=== PATIENT | female | born 1995 | race Caucasian/White ===

== ENCOUNTER 2020-09-24 23:04 | Emergency (ER) | payer SELFPAY ==
[2020-09-25] MEDS ORDERED: SMZ./TMP. 800/160 MG TABLET ONE (00:56)
[2020-09-25] MEDS ORDERED: CLINDAMYCIN 900MG/D5W 900 MG/50 ML IVPB IV ONE (00:57)
[2020-09-25] MEDS ORDERED: ONDANSETRON 4 MG/2 ML VIAL ONE (00:57)
[2020-09-25] MEDS ORDERED: MORPHINE 4 MG/ML SYR ONE (00:57)
--- NOTE | 2020-09-25 01:01 | EDPHYS ---
Physician Documentation [facility] Name: Milka Munroe Age: 24 yrs Sex: Female : 1995 Arrival Date: 09/24/2020 Time: 23:08 Bed 6 Private MD: ERASMO Physician Thomas Cisneros HPI: 09/25 00:56 This 24 yrs old Female presents to ER via Ambulatory with complaints of Eye jmm Problem. 00:56 the patient presents with a swollen area of the forehead and right eye. Onset: The jmm symptoms/episode began/occurred gradually, 1 day(s) ago. Possible cause(s): unknown. Associated signs and symptoms: Pertinent positives: erythema, swelling, Pertinent negatives: foreign body sensation. Modifying factors: the symptoms are alleviated by nothing, the symptoms are aggravated by nothing. The patient has not experienced similar symptoms in the past. 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 - Social history:: Smoking status: Patient reports the use of cigarette tobacco products, smokes one-half pack cigarettes per day, Patient uses alcohol, on a daily basis. street drugs, cocaine, Methamphetamine (Meth). ROS: 09/25 00:56 Constitutional: Negative for fever, chills, and weight loss, Cardiovascular: Negative jmm for chest pain, palpitations, and edema, Respiratory: Negative for shortness of breath, cough, wheezing, and pleuritic chest pain. Skin: Positive for erythema. All other systems are negative. Exam: 00:56 Constitutional: This is a well developed, well nourished patient who is awake, alert, jmm and in no acute distress. Eyes: EOMI, no conjunctival erythema appreciated ENT: Moist Mucus Membranes Neck: Trachea midline, Supple Chest/axilla: Normal chest wall appearance and motion. 00:56 Respiratory: Normal respirations, no respiratory distress appreciated Abdomen/GI: Non distended, soft Back: Normal ROM 00:56 Head/face: erythema noted to the right side of the eyebrow along with swelling. 00:56 Skin: erythema noted to the right side of the forehead. 00:56 Neuro: Orientation: is normal, Mentation: is normal, Memory: is normal. 00:56 Psych: Behavior/mood is pleasant, cooperative. Vital Signs: 09/24 23:25 BP 145 / 106; Pulse 102; Resp 16; Temp 98.4; Pulse Ox 100% ; Weight 58.97 kg; Height 5 rr5 ft. 4 in. (162.56 cm); Pain 10/10; 09/25 01:00 BP 141 / 100; Pulse 101; Resp 16; Pulse Ox 100% on R/A; jb4 02:00 BP 149 / 105; Pulse 82; Resp 16; Pulse Ox 100% on R/A; jb4 09/24 23:25 Body Mass Index 22.31 (58.97 kg, 162.56 cm) rr5 MDM: 00:25 Patient medically screened. [facility] 00:58 Data reviewed: vital signs, nurses notes. Counseling: I had a detailed discussion with [facility] the patient and/or guardian regarding: the historical points, exam findings, and any diagnostic results supporting the discharge/admit diagnosis, the need for outpatient follow up, to return to the emergency department if symptoms worsen or persist or if there are any questions or concerns that arise at home. ED course: Patient is alert and non toxic in appearance in the ED. EOM intact. I do not suspect orbital cellulitis. Will treat with oral abx and otherwise given strict return precautions. patient understood and agrees with the plan of care. . 09/25 01:53 Order name: Urine Dipstick-Ancillary; Complete Time: 13:56 [facility] 09/25 02:02 Order name: Urine Culture [facility] 09/25 02:04 Order name: Urine --Ancillary (enter results) 2 09/25 00:26 Order name: Saline Lock; Complete Time: 01:05 [facility] 09/25 00:26 Order name: Urine Dipstick-Ancillary (obtain specimen); Complete Time: 02:02 [facility] 09/25 00:26 Order name: Urine Test (obtain specimen); Complete Time: 02:02 [facility] Administered Medications: 00:50 Drug: Bactrim (trimethoprim-sulfamethoxazole) (160 mg-800 mg (DS) 1 tablet Route: PO; jb4 02:13 Follow up: Response: No adverse reaction jb4 00:53 Drug: Zofran (Ondansetron) 4 mg Route: IVP; Site: right antecubital; jb4 01:25 Follow up: Response: No adverse reaction; Marked relief of symptoms jb4 00:55 Drug: morphine 4 mg Route: IVP; Site: right antecubital; jb4 01:25 Follow up: Response: No adverse reaction; Marked relief of symptoms; Pain is decreased jb4 01:00 Drug: Clindamycin 900 mg Route: IVPB; Infused Over: 30 mins; Site: right antecubital; jb4 01:30 Follow up: Response: No adverse reaction; IV Status: Completed infusion jb4 02:11 Drug: Rocephin (cefTRIAXone) 1 grams Route: IV; Rate: calculated rate; Site: right 4 antecubital; 02:12 Follow up: Response: No adverse reaction; IV Status: Completed infusion; IV Intake: [id number] Disposition: 16:53 Co-signature as Attending Physician, Thomas Cisneros MD I agree with the assessment and sarika plan of care. Disposition: 09/25/20 01:00 Discharged to Home. Impression: Right Preseptal Cellulitis. - Condition is Stable. - Discharge Instructions: Preseptal Cellulitis, Adult. - Prescriptions for Clindamycin HCl 300 mg Oral Capsule - take 1 capsule by ORAL route every 6 hours for 10 days; 40 capsule. Bactrim DS 800- 160 mg Oral Tablet - take 1 tablet by ORAL route every 12 hours for 10 days; 20 tablet. Tylenol- Codeine #3 300-30 mg Oral Tablet - take 1 tablet by ORAL route every 4-6 hours As needed; 20 tablet. - Medication Reconciliation Form, Thank You Letter, Antibiotic Education, Prescription Opioid Use, Work release form form. - Follow up: Private Physician; When: 2 - 3 days; Reason: Recheck today's complaints, Continuance of care, Re-evaluation by your physician. Signatures: Dispatcher [employer] Thomas Luong MD MD cha Mickail, Joel, PA PA jmm Bryson, James RN RN jb4 Karlos Kolb RN RN rr5 Corrections: (The following items were deleted from the chart) 02:24 01:00 09/25/2020 01:00 Discharged to Home. Impression: Right Preseptal Cellulitis. jb4 Condition is Stable. Forms are Medication Reconciliation Form, Thank You Letter, Antibiotic Education, Prescription Opioid Use. Follow up: Private Physician; When: 2 - 3 days; Reason: Recheck today's complaints, Continuance of care, Re-evaluation by your physician. ileana
--- NOTE | 2020-09-25 01:01 | ER ---
Nurse's Notes [facility] Name: Milka Munroe Age: 24 yrs Sex: Female : 1995 Arrival Date: 09/24/2020 Time: 23:08 Bed 6 Private MD: Diagnosis: Right Preseptal Cellulitis Presentation: 09/24 23:25 Chief complaint: Patient states: I started to have severe headache yesterday then today rr5 when i woke up I feel a pressure on my right eye and it is swollen now. denies any trauma. Coronavirus screen: Client denies travel out of the [place] in the last 14 days. At this time, the client does not indicate any symptoms associated with coronavirus-19. Ebola Screen: Patient negative for fever greater than or equal to 101.5 degrees Fahrenheit, and additional compatible Ebola Virus Disease symptoms Patient denies exposure to infectious person. Patient denies travel to an Ebola-affected area in the 21 days before illness onset. Initial Sepsis Screen: Does the patient meet any 2 criteria? HR > 90 bpm. Does the patient have a suspected source of infection? Yes: Skin breakdown/wound. Risk Assessment: Do you want to hurt yourself or someone else? Patient reports no desire to harm self or others. Onset of symptoms was September 24, 2020. 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 - Social history:: Smoking status: Patient reports the use of cigarette tobacco products, smokes one-half pack cigarettes per day, Patient uses alcohol, on a daily basis. street drugs, cocaine, Methamphetamine (Meth). Screenin:57 Abuse screen: Denies threats or abuse. Nutritional screening: No deficits noted. jb4 Tuberculosis screening: No symptoms or risk factors identified. Fall Risk None identified. Assessment: 23:57 General: Appears in no apparent distress. comfortable, Behavior is calm, cooperative, jb4 appropriate for age. Pain: Complains of pain in right eye Pain radiates to right temporal area and right side of forehead Pain currently is 10 out of 10 on a pain scale. Neuro: Level of Consciousness is awake, alert, obeys commands, Oriented to person, place, time, situation. Cardiovascular: Patient's skin is warm and dry. Respiratory: Airway is patent Respiratory effort is even, unlabored, Respiratory pattern is regular, symmetrical. GI: No signs and/or symptoms were reported involving the gastrointestinal system. : No signs and/or symptoms were reported regarding the genitourinary system. EENT: No signs and/or symptoms were reported regarding the EENT system. Derm: Skin is intact, Skin is pink, warm \T\ dry. Musculoskeletal: Circulation, motion, and sensation intact. Range of motion: intact in all extremities. 09/25 01:06 Reassessment: Patient appears in no apparent distress at this time. Patient and/or jb4 family updated on plan of care and expected duration. Pain level reassessed. Patient is alert, oriented x 3, equal unlabored respirations, skin warm/dry/pink. D/c pending completion of IV antibiotics. 02:22 Reassessment: Patient appears in no apparent distress at this time. Patient and/or jb4 family updated on plan of care and expected duration. Pain level reassessed. Patient is alert, oriented x 3, equal unlabored respirations, skin warm/dry/pink. Vital Signs: 09/24 23:25 BP 145 / 106; Pulse 102; Resp 16; Temp 98.4; Pulse Ox 100% ; Weight 58.97 kg; Height 5 rr5 ft. 4 in. (162.56 cm); Pain 10/10; 09/25 01:00 BP 141 / 100; Pulse 101; Resp 16; Pulse Ox 100% on R/A; jb4 02:00 BP 149 / 105; Pulse 82; Resp 16; Pulse Ox 100% on R/A; jb4 09/24 23:25 Body Mass Index 22.31 (58.97 kg, 162.56 cm) rr5 ED Course: 09/24 23:08 Patient arrived in ED. es 23:28 Triage completed. rr5 23:29 Arm band placed on right wrist. rr5 23:57 Patient has correct armband on for positive identification. Bed in low position. Call jb4 light in reach. Side rails up X 1. Pulse ox on. NIBP on. 09/25 00:02 Alex Calvert, AMY is Primary Nurse. jb4 00:19 Jonah Miranda PA is PHCP. tyron 00:19 Thomas Cisneros MD is Attending Physician. [facility] 02:23 No provider procedures requiring assistance completed. IV discontinued, intact, jb4 bleeding controlled, No redness/swelling at site. Pressure dressing applied. Administered Medications: 00:50 Drug: Bactrim (trimethoprim-sulfamethoxazole) (160 mg-800 mg (DS) 1 tablet Route: PO; jb4 02:13 Follow up: Response: No adverse reaction jb4 00:53 Drug: Zofran (Ondansetron) 4 mg Route: IVP; Site: right antecubital; jb4 01:25 Follow up: Response: No adverse reaction; Marked relief of symptoms jb4 00:55 Drug: morphine 4 mg Route: IVP; Site: right antecubital; jb4 01:25 Follow up: Response: No adverse reaction; Marked relief of symptoms; Pain is decreased jb4 01:00 Drug: Clindamycin 900 mg Route: IVPB; Infused Over: 30 mins; Site: right antecubital; jb4 01:30 Follow up: Response: No adverse reaction; IV Status: Completed infusion jb4 02:11 Drug: Rocephin (cefTRIAXone) 1 grams Route: IV; Rate: calculated rate; Site: right [facility] antecubital; 02:12 Follow up: Response: No adverse reaction; IV Status: Completed infusion; IV Intake: [id number] Intake: 02:12 IV: 10ml; Total: 10ml. jb Outcome: 01:00 Discharge ordered by . [facility] 02:23 Discharged to home ambulatory, with friend. jb4 02:23 Condition: stable 02:23 Discharge instructions given to patient, Instructed on discharge instructions, follow up and referral plans. medication usage, Demonstrated understanding of instructions, follow-up care, medications, Prescriptions given X 3. 02:24 Patient left the ED. jb Addendum: 09/28/2020 07:46 Addendum: Culture Results: Positive urine culture. No further action required. Bacteria h b sensitive to prescribed antibiotic. Signatures: Jonah Miranda PA PA jmm Salyer, Edna es Baxter, Heather, RN RN Alex Calvert, RN RN jb4 Karlos Kolb RN RN rr5 Corrections: (The following items were deleted from the chart) 09/25 01:03 00:53 Clindamycin 900 mg IVPB in right antecubital over 30 mins [place] jb4
[2020-09-25 01:52] LABS: Urine Blood 3+ (Negative); Urine Glucose Negative (Negative); Urine Protein 1+ (Negative); Urine Specific Gravity >=1.030 (1.005-1.030)
[2020-09-25] MEDS ORDERED: CEFTRIAXONE/SWI 1gm 1 GM/10 ML SYR ONE (02:23)
[2020-09-25 02:30] VITALS: TEMP 98.4; O2SAT 100
[2020-09-25 02:33] VITALS: BP 149/105
[2020-09-25 03:56] LABS: Urine Specific Gravity/Preg >1.030 (1.005-1.030)
== END 2020-09-25 02:24 | disposition home or self-care (01) ==
LOC: ER 23:04
DX: L03.213 Periorbital cellulitis (principal); F17.210 Nicotine dependence, cigarettes, uncomplicated
CPT/HCPCS: 81003; 81025; 87077; 87086; 87088; 87186; 96365; 96375; 99283; J0696; J2405

== ENCOUNTER 2022-06-26 20:34 | Emergency (ER) | payer SELFPAY ==
--- OUTSIDE RECORDS SUMMARY | 2022-06-26 20:40 | XMS REPORT | Continuity of Care Document ---
:1995 Author Organization [facility] t Address [address] [place] [address] Care Team Providers Name Role Phone PCP, PATIENT DOES NOT HAVE A Primary Care Physician Unavaila Jerrod Rutherford Attending Clinician Unavailable JIM HUERTA Attending Clinician Unavailable Jim Huerta MD Attending Clinician Johana Barakat DO Attending Clinician Doctor Unassigned, [place] Attending Clinician Unavailable Kerry Renee Attending Clinician Provider, [facility] Attending Clinician Unavailable Hellen Tran Attending Clinician Physician, No Primary or Family Admitting Clinician UnavailJIM Clemons Admitting Clinician Unavailable Payers Payer Name Policy Type Policy Number Effective Date Expiration Date [facility] [id number] 2018 CHOICE MEDICAID 00:00:00 Problems Condition Condition Condition Status Onset Resolution Last Treating Co mments Source Name Details Category Date Date Treatment Clinician Date Presence Presence Disease Active 2017-05 Overview: Un keith of of 2-05 Formattin ity of intrauteri intrauteri 00:00: g of this [place] ne ne 00 note Medical contracept contracept might be Branch tete device tete device different from the original. 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 Papanicola Papanicola ou smear ou smear 018 pap of cervix of cervix neg History of History of Disease Active U nivers depression depression 3-09 it y of 00:00: [place] 00 [facility] Allergies, Adverse Reactions, Alerts Allergy Allergy Status Severity Reaction(s) Onset Inactive Treating Comm ents Source Name Type Date Date Clinician No Known DA Active U [facility] Allergie 2-20 Clear s 00:00: Frausto 00 [facility] NO KNOWN Drug Active Univers ALLERGIE Class ity of S [facility] Social History Social Habit Start Date Stop Date Quantity Comments Source History of tobacco Cigarette Smoker University of use [facility] Exposure to Not sure University of SARS-CoV-2 (event) [facility] Alcohol intake 2021-06-02 2021-06-02 Current University of 00:00:00 00:00:00 non-drinker of [facility] [place] [facility] alcohol Branch (finding) Cigarettes smoked 2017-12-03 2017-12-03 Univers ity of current (pack per 00:00:00 00:00:00 [place] ) - Reported Branch Cigarette 2017-12-03 2017-12-03 University of pack-years 00:00:00 00:00:00 [facility] Tobacco use and 2017-12-03 2017-12-03 Never used Universit y of exposure 00:00:00 00:00:00 [facility] Sex Ass[birth year] At [birth year] Universit y of 00:00:00 00:00:00 [facility] Smoking Status Start Date Stop Date Source Current every day smoker 2017-12-03 00:00:00 Uni versity [facility] Medications Ordered Filled Start Stop Current Ordering Indication Dosage Frequency Signature Comments Components Source Medication Medication Date Date Medication? Clinician (SIG) Name Name metoclopram No 10mg 10 mg, Uni vers omar HCl 06-02 Slow IV ity of (REGLAN) 20:45: 21:22 Push, [place] injection 00 :00 ONCE, 1 Medical 10 mg dose, On Branch 06/02/21 at 1445, KATHERINE NaCl 0.9% No 1000mL at 999 Uni vers (NS) bolus 06-02 mL/hr, ity of infusion 20:45: 20:20 1,000 mL, Domenico as 1,000 mL 00 :00 IV Medical Infusion, Branch ONCE, 1 dose, On Wed06/02/21 at 1445, STAT ibuprofen No 400mg 400 mg, Uni vers (IBU) 06-02 Oral, ity of tablet 400 20:30: 19:56 ONCE, 1 [place] as mg 00 :00 dose, On Medical [facility] Branch 06/02/21 at 1430, KATHERINE acetaminoph 2021- No 650mg 650 mg, U nivers en 06-02 Oral, ity of (TYLENOL) 20:30: 19:56 ONCE, 1 [place] tablet 650 00 :00 dose, On Medic al mg [facility] Branch 06/02/21 at 1430, KATHERINE ketorolac 2020- No 15mg 15 mg, Unive rs (TORADOL) 09-27 Slow IV ity of injection 17:00: 16:59 Push, Q6H, [place] 15 mg 00 :00 4 doses, Medical First dose Branch on 09/27/20 at 1200, Last dose on 09/28/20 at 0600, Routine
outreach team member approving Restricted medication : JOHANA BARAKAT clindamycin 2020- No 600mg 600 mg, IV Univers (CLEOCIN) 09-27 Piggyback, ity of injection 15:15: 14:08 ONCE, 1 [place] 600 mg 00 :00 dose, Fri Medical 09/27/20 at Branch 1015, KATHERINE
Re ason for Anti-Infec tive: Empiric Therapy for Suspected Infection< br>Empiric Therapy Site: HEENT
D uration of therapy: 72 hours
R estricted use approved by: ADC PROVIDER dexamethaso 2020- No 10mg 10 mg, IV Univers ne 09-27 Push, ity of (DECADRON 15:15: 14:08 ONCE, 1 [place] PHOSPHATE) 00 :00 dose, Fri Medi janneth injection 09/27/20 at Bran ch 10 mg 1015, STAT methylPREDN Yes [id number] Take by [facility] 09-27 9109 mouth ity of (MEDROL, 00:00: SEE-INSTRU D[place] as SHERMAN,) 4 mg 00 CTIONS. Medica l tablets follow Branch package directions methylPREDN Yes [id number] Take by [facility] 09-27 9109 mouth ity of (MEDROL, 00:00: SEE-INSTRU Domenico as SHERMAN,) 4 mg 00 CTIONS. Medica l tablets follow Branch package directions No known No [facility] No known No [facility] No known No Univers [facility] No known No Univers [facility] No known No Univers [facility] No known No Univers [facility] Immunizations Ordered Filled Immunization Date Status Comments [facility] e Immunization Name Name Varicella 2017-10-23 Completed [place] of (varivax)(chicken 00:00:00 [place] M edical pox) Branch Varicella 2017-10-23 Completed [place] of (varivax)(chicken 00:00:00 [place] M edical pox) Branch Varicella 2017-10-23 Completed University of (varivax)(chicken 00:00:00 [place] M edical pox) Branch Varicella 2017-10-23 Completed [place] of (varivax)(chicken 00:00:00 [place] M edical pox) Branch Varicella 2017-10-23 Completed University of (varivax)(chicken 00:00:00 [place] edical pox) Branch Varicella 2017-10-23 Completed University of (varivax)(chicken 00:00:00 [place] M edical pox) Branch Varicella 2017-10-23 Completed University of (varivax)(chicken 00:00:00 [place] M edical pox) Branch Varicella 2017-10-23 Completed University of (varivax)(chicken 00:00:00 [place] edical pox) Branch TDAP 2017-09-01 Completed University of 00:00:00 [facility] Tdap 2017-09-01 Completed University of 00:00:00 [facility] Tdap 2017-09-01 Completed University of 00:00:00 [facility] Tdap 2017-09-01 Completed University of 00:00:00 [facility] Tdap 2017-09-01 Completed University of 00:00:00 [facility] Tdap 2017-09-01 Completed University of 00:00:00 [facility] TDAP 2017-09-01 Completed University of 00:00:00 [facility] TDAP 2017-09-01 Completed University of 00:00:00 [facility] TDAP 2015-11-21 Completed University of 00:00:00 [facility] Tdap 2015-11-21 Completed University of 00:00:00 [facility] Tdap 2015-11-21 Completed University of 00:00:00 [facility] Tdap 2015-11-21 Completed University of 00:00:00 [facility] Tdap 2015-11-21 Completed University of 00:00:00 [facility] Tdap 2015-11-21 Completed University of 00:00:00 [facility] TDAP 2015-11-21 Completed University of 00:00:00 [facility] TDAP 2015-11-21 Completed University of 00:00:00 [facility] Vital Signs Vital Name Observation Time Observation Value Comments Source Systolic blood 2021-06-02 21:35:21 130 mm[Hg] Univer sity of pressure [facility] Diastolic blood 2021-06-02 21:35:21 98 mm[Hg] Unive rsity of pressure [facility] Heart rate 2021-06-02 21:35:21 109 /min [facility]i [facility] Respiratory rate 2021-06-02 21:35:21 18 /min Univ ers[facility] [place] [facility] Oxygen saturation in 2021-06-02 21:35:21 95 /min University of Arterial blood by [place] [facility] janneth Pulse oximetry Branch Body temperature 2021-06-02 17:58:00 36.67 Nancy Univ [facility] [place] [facility] Body height 2021-06-02 17:58:00 162.6 cm [facility] [place] [facility] Body weight 2021-06-02 17:58:00 56.7 kg [facility] [place] [facility] BMI 2021-06-02 17:58:00 21.46 kg/m2 [facility] [place] [facility] Systolic blood 2020-09-27 15:00:00 137 mm[Hg] Univer sity of pressure [place] [facility] Diastolic blood 2020-09-27 15:00:00 97 mm[Hg] Unive rsity of pressure [place] [facility] Heart rate 2020-09-27 15:00:00 105 /min [facility] [place] [facility] Respiratory rate 2020-09-27 15:00:00 18 /min Univ ers[facility] [place] [facility] Oxygen saturation in 2020-09-27 15:00:00 96 /min University of Arterial blood by [facility] janneth Pulse oximetry Branch Body temperature 2020-09-27 13:50:00 36.67 Nancy Univ ers[facility] [place] [facility] Body weight 2020-09-27 13:50:00 54.432 kg [facility]i [facility] [place] [facility] BMI 2020-09-27 13:50:00 21.26 kg/m2 [facility] [place] [facility] Systolic blood 2018-12-23 15:21:00 149 mm[Hg] Univer sity of pressure [place] [facility] Diastolic blood 2018-12-23 15:21:00 104 mm[Hg] Unive rsity of pressure [place] [facility] Heart rate 2018-12-23 15:14:00 81 /min [facility] [place] [facility] Body temperature 2018-12-23 15:14:00 36.72 Nancy Univ [facility] [place] [facility] Respiratory rate 2018-12-23 15:14:00 20 /min Univ [facility] [place] [facility] Body height 2018-12-23 15:14:00 160 cm [facility] [place] [facility] Body weight 2018-12-23 15:14:00 55.157 kg [facility] [place] [facility] BMI 2018-12-23 15:14:00 21.54 kg/m2 [facility] Oxygen saturation in 2018-12-23 15:14:00 99 /min University [facility] blood by [facility] Pulse oximetry Branch Procedures Procedure Date / Time Performed Performing Clinician [facility] e POCT TEST 2021-06-02 21:16:[address] [facility] D-DIMER 2021-06-02 20:23:00 Jim Huerta [facility] XR CHEST 1 VW 2021-06-02 18:52:11 Jim Huerta [facility] COVID-19 (ID NOW RAPID 2021-06-02 18:14:00 Jim Huerta [facility] TESTING) Medical [facility] COMP. METABOLIC PANEL 2020-09-27 14:14:00 Johana Barakat [facility] ([id number]) [facility] CBC WITH DIFF 2020-09-27 14:14:00 [place] [facility] LACTIC ACID WHOLE 2020-09-27 14:14:00 Barakat [facility] BLOOD [facility] Branch CONSENT/REFUSAL FOR 2020-09-27 13:36:08 Doctor Unassigned, No [facility] DIAGNOSIS AND [facility] Medical [facility] TREATMENT NOTICE OF PRIVACY 2020-09-27 13:35:29 Doctor Unassigned, No [facility] PRACTICES [facility] ASSIGNMENT OF BENEFITS 2018-12-23 15:04:17 Doctor Unassigned, No [facility] Encounters Start End Encounter Admission Attending Care Care Encounter Source Date/Time Date/Time Type Type Clinicians Facility Department ID 2021-03-09 Emergency [facility] [id number] Univers [facility] 2021-06-29 2021-06-29 Emergency EM MoisesFLORIAN TERS [id number] [facility] 00:49:00 03:40:00 Jerrod 11 [facility] 2021-06-02 2021-06-02 Emergency X OLIVERIO HUERTA ERT [id number] Univers 12:01:00 16:32:00 JIM velia [facility] 2021-06-02 2021-06-02 Emergency Bradley NHBRITTNY [id number] Univers 12:01:00 16:32:00 [facility] [id number] it y of JUDI 4.2.7.2.686 [facility] [id number] [facility] 014 [facility] ([facility]) 2020-09-27 2020-09-27 Emergency , [facility] [id number] Univers 08:52:00 10:54:00 Johana Viji [id number] i ty of Josee 4.2.7.2.686 [facility] [id number] [place] [id number] [place] 2020-09-27 2020-09-27 Orders Doctor ILDA 1.2.840.114 [id number] Univers 00:00:00 00:00:00 Only Unassigned, HARSH [id number] ity of [place] [facility] 4.2.7.2.686 Domenico as [id number] [address] 2018-12-26 2018-12-26 Telephone Víctor [facility] [id number] Univers 00:00:00 00:00:00 Kerry Hopkins [employer] [id number] ity of [facility] 4.2.7.2.686 Domenico as MATERNAL [phone] [facility] & CHILD [address] [place] [address] 2018-12-26 2018-12-26 Letter Víctor [facility] [id number] Univers 00:00:00 00:00:00 (Out) Kerry Hopkins [employer] [id number] ity of [facility] 4.2.7.2.686 Domenico as MATERNAL [phone] [facility] & CHILD [address] [place] [address] 2018-12-23 2018-12-23 Office Provider, MarleniRmcherie Siu [facility] 1 .[id number] Univers 10:07:03 10:38:09 Visit Kerry Renee [employer] 350.1.13.1 0 ity of [facility] 4.2.7.2.686 Domenico as MATERNAL [phone] [facility] & CHILD [address] [place] [address] 2018-12-23 2018-12-23 Orders Doctor ILDA [id number] Univers 00:00:00 00:00:00 Only Unassigned, HARSH [id number] ity of [place] [facility] 4.2.7.2.686 Domenico as [phone] [facility] 009 [place] 2018-12-12 2018-12-12 Letter Chadwick, [facility] [id number] Univers 00:00:00 00:00:00 (Out) Hellen [employer] [id number] it y of [facility] 4.2.7.2.686 Domenico as MATERNAL [id number] Med ical & CHILD [address] [place] [address] Results Test Description Test Time Test Comments Results Result Comments Source URINE HCG TRIAGE (ER ONLY) 2021-06-30 08:17:00 Test Item Value Reference Range Interpretation Comme nts URINE HCG TRIAGE (ER ONLY) (test code = HCGTRIAGE) NEGATIVE Neg ative Urine Test Result: NEGATIVEAre internal controls (presence of a control line & clear background) OK? YesLot # of HCG Test Kit: [id number] Date of Kit: 08/07/22Test Performed by:FLORA REYESTest Perfomed on: 06/29/21[facility] W/AUTO [id number] 00:06:00 Test Item Value Reference Range Interpretation Comments WHITE BLOOD CELL (test code = WBC) 6.6 K/uL 3.5-11.0 N RED BLOOD CELL (test code = RBC) 4.87 M/uL 3.54-5.02 N HEMOGLOBIN (test code = HGB) 14.5 GM/DL 11.0-15.0 N HEMATOCRIT (test code = HCT) 42.8 % 37.0-47.0 N MEAN CELL VOLUME (test code = MCV) 87.9 fL 81.0-99.0 N MEAN CELL HGB (test code = MCH) 29.8 pg 27.0-31.0 N MEAN CELL HGB CONCETRATION (test 33.9 GM/DL 33.0-37.0 N code = MCHC) RED CELL DISTRIBUTION WIDTH CV 13.3 % 11.5-14.5 N (test code = RDW) PLATELET COUNT (test code = PLT) 448 K/mm3 150-400 H MEAN PLATELET VOLUME (test code = 8.6 FL 8.8-13.1 L MPV) LYMPHOCYTE % (test code = LY%) 27.5 % 15.0-40.0 N LYMPHOCYTE # (test code = LY#) 1.8 K/uL 1.0-3.8 N D-DIMER [id number] 02:16:00 Test Item Value Reference Range Interpretation Comments D-DIMER RAPID 243 ng/mL 0-232 HH Epage-az-Tmyx test, critical (test code = value notificat ion DDIMRAP) anddocumentatio n is done by nursing staff.P erformed by certified opera tor at FSEDTHROMBOSIS AND/OR PULMONARY EMBOL ISM AND THE CLINICAL CUT- O FF VALUE FOR EXCLUSION (500 ng/mL FEU) OF THESE CONDITION SIS VALIDATED BY THE MANUFACT URER OF THE METHOD. A NEGAT TETE D-DIMER RESULT WHEN COM BINED WITH A CLINICALASSESSM ENT OF LOW PRETEST PROBABI LITY HAS BEEN SHOWN TO HAVEA HIGH NEGATIVE PREDICTIVE VALU E OF DVT OR PE. D-DIMER GIGI UES >500 ng/mL FEU ARE NOT BARON GNOSTIC FOR DVT, PEor DIC W ITHOUT OTHER CONFIRMATORY TE STS AND APPROPRIATECLIN ICAL EUALUATIONS. TROPONIN-I [id number] 02:03:00 Test Item Value Reference Range Interpretation Comments TROPONIN-I RAPID 0.00 ng/mL 0.00-0.08 N Performed b y certified (test code = diffusion operator at [facility] TROPIRAP) Ctr Negative: < = 0.08 Positive: >= 0. 09An elevated tropon in value alone is not clemons fficient todiagnose a my ocardial infarction. Rat her, the patient sclinic al presentation (h istory, physical exam) and ECGshould be us ed in conjunction wit h troponin in thediagnosti c evaluation of s uspected myocardial infa rction. Aserial samplin g protocol is recommended to facilitate the identification of temporal changes in trop onin levels characteristic of VT. BASIC METABOLIC [id number] 01:54:00 Test Item Value Reference Range Interpretation Comments SODIUM (test code = NA/ABG) 143 MEQ/L 134-147 N POTASSIUM (test code = K/ABG) 4.6 MEQ/L 3.4-5.0 N CHLORIDE (test code = CL/ABG) 106 MEQ/L 100-108 N CREATININE ABG (test code = 0.6 mg/dL 0.6-1.0 N CREAABG) POC IONIZED CALCIUM (test code = 1.24 MMOL/L 1.12-1.32 N POCCA) POC GLUCOSE (test code = POCGLU) 90 MG/DL - CTA CHEST FOR [id number] 00:00:00 [facility] : 1995 Sex: F Name: MANJIT SILVA Round O FSED : 1995 Age/S: 25 / F Unit #: [id number] Loc: [place], [place] Phys: Jerrod De Leon MD Acct: [id number] Dis Date: Status: REG ER PHONE #: Exam Date: 06/29/2021 0319 FAX #: Reason: r.o PE EXAMS: CPT CODE: [id number] [place] [address] PROCEDURE INFORMATION: Exam: CTA Chest With Contrast Exam date and time: 06/29/2021 3:09 AM Age: 25 years old Clinical indication: Pain and abnormal findings; Abnormal diagnostic tests; Elevated d-dimer; Other: Chest pain;Additional info: R. O pe TECHNIQUE: Imaging protocol: Computed tomographic angiography of the chest with contrast. 3D rendering (Not supervised by radiologist): MIP and/or 3D reconstructed images were created by the technologist. Radiation optimization: All CT scans at this facility use at least one of these dose optimization techniques: automated exposure control; mA and/or kV adjustment per patient size (includes targeted exams where dose is matched to clinical indication); or iterative reconstruc tion. Contrast material: ISOVUE 300; Contrast volume: 100 ml; Contrast route: INTRAVENOUS (IV); COMPARISON: No relevant prior studies available. FINDINGS: Pulmonary arteries: Normal caliber. No fillingdefects of the opacified pulmonary arteries to suggest acute pulmonary embolism. Aorta: No aortic aneurysm. No aortic dissection. Lungs: No consolidation. No masses. Pleural spaces: Unremarkable. No pneumothorax. No pleural effusion. Heart: No cardiomegaly. No pericardial effusion. Lymph nodes: No pathologic lymphadenopathy by CT size criteria. Bones/joints: No acute abnormality. Soft tissues: Unremarkable. Other findings: Focal cortical scarring of the right kidney with a punctate subjacent nonobstructing calculus. IMPRESSION: No acute findings. at 0323 Reported and signed by: Conrad Lombardo M.D. PAGE 1 Signed Report (CONTINUED) Name: MANJIT SILVA [place] FSED : 1995 Age/S: 25 / F Unit #: [id number] Loc: [place], [place] Phys: Jerrod De Leon MD Acct: [id number] Dis Date: Status: REG ER PHONE #: Exam Date: 06/29/2021 0319 FAX #: Reason: r.o PE EXAMS: CPT CODE: [id number] [place] [address] (Continued) CC: Jerrod De Leon MD Technologist:Vashti Pratt RT(R)(CT) CTDI: DLP: Trnscb Date/Time: 06/29/2021 (322) [email or web address] Orig Print D/T: S: 06/29/2021 (322) PAGE 2 Signed [id number] 21:55:24 Test Item Value Reference Interpretation Comments Range D-DIMER (test code = <0.21 See_Comment [Autom ated [id number]) message] The system which generated this result transmitted reference range : <0.50 ?g/mL (FEU). The reference range was not used to interpret this result as normal/abnormal . ASHKAN (test code = This test may be ASHKAN) used in conjunction with a clinical pretest probability (PTP) assessment model to exclude venous thromboembolism (VTE) in patients suspected of deep venous thrombosis (DVT) and pulmonary embolism (PE) A D-Dimer value less than 0.50 ?g/ml (FEU) has a negative predicative value of 96 to 100% (95% CI)and 97 to 100% (95% CI) as an aid in the diagnosis of deep vein thrombosis (DVT) and pulmonary embolism when there is low or moderate pretest probability of PE or DVT. D-Dimer values are expressed in initial fibrinogen equivalent units (FEU)" The assay results should be used with other information, including the clinical context, in forming a diagnosis. Lab Interpretation Normal (test code = 52057-1) [facility] [id number] 21:16:00 Test Item Value Reference Range Interpretation Comments POCT PREG (test code = 1605) Negative On board controls acceptable with Present C Line (test code = 3574) POCT PREG LOT # (test code = 3575) [id number] POCT PREG TEST DATE (test 2022-07-07 code = 3576) Lab Interpretation (test code = Normal 96079-5) [facility]OL[facility] PAN[facility] (80112)2020-09-27 14:36:15 Test Item Value Reference Range Interpretation Comments NA (test code = 138 mmol/L 135-145 8893786201) K (test code = 3.9 mmol/L 3.5-5.0 5147751822) CL (test code = 105 mmol/L 98-108 8111923874) CO2 TOTAL (test code = 22 mmol/L 23-31 L 9343064781) AGAP (test code = 2-16 9205679998) BUN (test code = 11 mg/dL 7-23 2354546538) GLUCOSE (test code = 98 mg/dL 70-110 3846210302) CREATININE (test code = 0.76 mg/dL 0.50-1.04 3165052915) TOTAL BILI (test code = 0.6 mg/dL 0.1-1.1 1859600064) CALCIUM (test code = 9.7 mg/dL 8.6-10.6 4951466099) T PROTEIN (test code = 7.8 g/dL 6.3-8.2 9420151876) ALBUMIN (test code = 4.5 g/dL 3.5-5.0 1609618139) ALK PHOS (test code = 92 U/L 34-122 4116121874) ALTv (test code = 44 U/L 5-35 H 1742-6) AST(SGOT) (test code = 53 U/L 13-40 H 4779401320) eGFR (test code = mL/min/1.73m2 2137418457) ASHKAN (test code = ASHKAN) Association of Glomerular Filtration Rate (GFR) and Staging of Kidney Disease* + --+ --+ ------+| GFR (mL/min/1.73 m2) ?| With Kidney Damage ?| ?Without Kidney Damage+ --------+ --------+ +| ?>90 ?| ?Stage one ?| ? Normal ?+ ---+ ---+ -------+| ?60-89 ?| ?Stage two ?| ? Decreased GFR ? + --+ --+ ------+| ?30-59 ?| ?Stage three ?| ? Stage three ? + --+ --+ ------+| ?15-29 ?| ?Stage four ? | ? Stage four ?+ ---+ ---+ -------+| ?<15 (or dialysis) ? ?| ?Stage five ? | ? Stage five ?+ ---+ ---+ -------+ *Each stage assumes the associated GFR level has been in effect for at least three months. ?Stages 1 to 5, with or without kidney disease, indicate chronic kidney disease. Notes: Determination of stages one and two (with eGFR >59mL/min/1.73 m2) requires estimation of kidney damage for at least three months as defined by structural or functional abnormalities of the kidney, manifested by either:Pathological abnormalities or Markers of kidney damage (including abnormalities in the composition of the blood or urine or abnormalities in imaging tests). Lab Interpretation Abnormal (test code = 05972-7) [facility] WITH [id number] 14:23:53 Test Item Value Reference Range Interpretation Comments WBC (test code = See_Comment [Automated 6690-2) message] The sy stem which generated this result transmitted reference range : 4.30 - 11.10 10*3/?L. The reference range was not used to interpret this result as normal/abnormal . RBC (test code = See_Comment [Automated 789-8) message] The sy stem which generated this result transmitted reference range : 3.93 - 5.25 10*6/?L. The reference range was not used to interpret this result as normal/abnormal . HGB (test code = 15.2 g/dL 11.6-15.0 H 718-7) HCT (test code = 44.2 % 35.7-45.2 4544-3) MCV (test code = 90.4 fL 80.6-95.5 787-2) MCH (test code = 31.1 pg 25.9-32.8 785-6) MCHC (test code = 34.4 g/dL 31.6-35.1 786-4) RDW-SD (test code = 40.6 fL 39.0-49.9 11030-2) RDW-CV (test code = 12.2 % 12.0-15.5 788-0) PLT (test code = See_Comment [Automated 777-3) message] The sy stem which generated this result transmitted reference range : 166 - 358 10*3/ ?L. The reference r jam was not used to interpret this result as normal/abnormal . MPV (test code = 8.8 fL 9.5-12.9 L 61225-7) NRBC/100 WBC (test See_Comment [Automat ed code = [id number]) message] The system which generated this result transmitted reference range : 0.0 - 10.0 /100 WBCs. The refer ence range was not u sed to interpret th is result as normal/abnormal . NRBC x10^3 (test code <0.01 See_Comment [Auto mated = [id number]) message] The s ystem which generated this result transmitted reference range : 10*3/?L. The reference range was not used to interpret this result as normal/abnormal . GRAN MAT (NEUT) % 75.5 % (test code = 770-8) IMM GRAN % (test code 0.20 % = 9071359021) LYMPH % (test code = 17.2 % 736-9) MONO % (test code = 6.0 % 5905-5) EOS % (test code = 0.6 % 713-8) BASO % (test code = 0.5 % 706-2) GRAN MAT x10^3(ANC) 6.70 10*3/uL 1.88-7.09 (test code = 3044198960) IMM GRAN x10^3 (test <0.03 0.00-0.06 code = 5128679582) LYMPH x10^3 (test code 1.52 10*3/uL 1.32-3.29 = 731-0) MONO x10^3 (test code 0.53 10*3/uL 0.33-0.92 = 742-7) EOS x10^3 (test code = 0.05 10*3/uL 0.03-0.39 711-2) BASO x10^3 (test code 0.04 10*3/uL 0.01-0.07 = 704-7) Lab Interpretation Abnormal (test code = 45285-5) [facility] [id number] 14:18:53 Test Item Value Reference Range Interpretation Comments LACTIC ACID (test code = 0.82 mmol/L 0.50-2.20 [id number]) Lab Interpretation (test code = Normal 51594-3) [facility]
[2022-06-26] MEDS ORDERED: ACETAMINOPHEN 325 MG TABLET ONE (21:57)
--- NOTE | 2022-06-26 22:38 | RAD REPORT ---
EXAM DESCRIPTION: BOOKER HULL - 06/26/2022 9:31 pm CLINICAL HISTORY: Left hand pain. Trauma COMPARISON: None. TECHNIQUE: Three views of the left hand. FINDINGS: No fracture is identified. There is no dislocation or periosteal reaction noted. Epiphyses and growth plates are normal in appea dat. No foreign body or other soft tissue abnormality. IMPRESSION: Negative left hand examination.
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
[2022-06-26 23:12] VITALS: BP 136/90; TEMP 97.3; O2SAT 99
== END 2022-06-26 23:06 | disposition home or self-care (01) ==
LOC: ER 20:34
DX: M25.532 Pain in left wrist (principal); M79.642 Pain in left hand; F17.210 Nicotine dependence, cigarettes, uncomplicated
CPT/HCPCS: 99283